=== PATIENT | male | born 1985 | race Caucasian/White ===

== ENCOUNTER 2025-09-29 10:54 | Emergency (ER) | payer OTHER, SELFPAY ==
[2025-09-29 10:59] VITALS: BP 148/78; PULSE 85; RESP 16; TEMP 36.4; O2SAT 100
[2025-09-29 11:22] VITALS: BP 135/81; PULSE 92; RESP 18; TEMP 36.6; O2SAT 99
--- NOTE | 2025-09-29 13:21 | ED.DENTAL ---
HPI - Dental/Oral General Chief complaint: Dental/Oral Stated complaint: toothache Time Seen by Provider: 09/29/25 11:18 Source: patient Mode of arrival: ambulatory Limitations: no limitations History of Present Illness HPI Narrative: Patient is a 40-year-old male who presents the ED with report of right lower dental pain. Patient reports having pain throughout tooth number 29. States he has had a prior filling that has since fallen out and required further dental treatment. He reports about 8 months ago he had an infection of this tooth which improved with Augmentin. He began having increased pain throughout the tooth this morning. He had some leftover Augmentin which he took this morning. Denies fevers, difficulty swallowing or breathing. Does have a dentist, but has not made an appointment. Related Data Allergies Allergy/AdvReac Type Severity Reaction Status Date / Time No Known Allergies Allergy Verified 09/29/25 12:38 Review of Systems Review of Systems: All systems reviewed & are unremarkable except as noted in HPI. All systems reviewed & are unremarkable except as noted in HPI and below Exam Narrative: GENERAL: Well appearing, well-nourished, non-toxic, in no acute distress. HEAD: Normocephalic, atraumatic. ENT: Fracture/partially cracked tooth # 29, with mild surrounding gum inflammation, focal TTP. No focal fluctuance or evidence of abscess. No stridor or trismus. Maintaining secretions. No posterior pharynx erythema, tonsillar hypertrophy. RESPIRATORY: Airway patent, respirations nonlabored. No stridor trismus CARDIOVASCULAR: Regular rate and rhythm MUSCULOSKELETAL: Moves all extremities. No gross deformities. SKIN: Warm, dry, normal color. NEURO: A&O X3. Speech clear. PSYCHIATRIC: Appropriate mood and affect. Normal interaction. Course Vital Signs Vital signs: Vital Signs Temperature 97.5 F L 09/29/25 10:59 Pulse Rate 85 09/29/25 10:59 Respiratory Rate 16 09/29/25 10:59 Blood Pressure 148/78 H 09/29/25 10:59 Pulse Oximetry 100 09/29/25 10:59 Oxygen Delivery Room Air 09/29/25 10:59 Temperature 98 F 09/29/25 11:22 Pulse Rate 92 09/29/25 11:22 Respiratory Rate 18 09/29/25 11:22 Blood Pressure 135/81 09/29/25 11:22 Pulse Oximetry 99 09/29/25 11:22 Oxygen Delivery Room Air 09/29/25 11:22 [facility] Narrative Medical decision making narrative: Patient's pain is consistent with dental caries. There are no focal signs of space-occupying abscess. The patient is controlling secretions well without signs of airway compromise. Patient is felt reasonable for outpatient follow-up with dental evaluation. Will start patient on Augmentin, advised close follow-up with dentist. Given return precautions. Discharged in stable condition. Differential Diagnosis Differential Diagnosis: Dental fracture, dental infection, dental abscess, strep throat Medical Records I have reviewed the following patient records and this information was taken into consideration when formulating the assessment and plan.: previous labs, previous ER visits, previous hospitalizations and previous clinic visits Lab Data [facility] Lab Attestation statement: I personally reviewed the patient's lab results. Discharge Plan Discharge Clinical Impression: Toothache Patient Disposition: Home Condition: Stable Instructions: Antibiotic Form, Toothache (ED) Additional Instructions: Take antibiotics as prescribed. It is important you finish the entire course. Continue Tylenol/ibuprofen as needed for pain. Follow-up with your dentist for further evaluation. Patient Language: Icelandic Prescriptions: New amoxicillin-pot clavulanate 875-125 mg tablet 1 tablet PO Q12H 7 Days Qty: 14 0RF Follow-up/Referrals: PHYSICIAN NOT ON STAFF,NONSTAFF [Primary Care Provider] Time of Disposition: 13:24
== END 2025-09-29 13:37 | disposition home or self-care (01) ==
PROVIDERS: Emergency Provider Physician Assistant
DX: K08.89 Other specified disorders of teeth and supporting structures (principal)
CPT/HCPCS: 99283